=== PATIENT | female | born 1985 | race Asian ===

== ENCOUNTER 2020-05-09 17:05 | Emergency (ER) | payer OTHER ==
[~2020-05-09] VITALS: Ht 162.6 cm; Wt 62.1 kg
[2020-05-09 17:15] VITALS: Ht 162.6 cm; Wt 62.1 kg
[2020-05-09] MEDS ORDERED: ANTIBIOTIC O500 U/GM TOP (18:19)
[2020-05-09] MEDS ORDERED: IBU600 M2 PO (18:19)
[2020-05-09 19:00] VITALS: BP 138/88
== END 2020-05-09 18:40 | disposition home or self-care (01) ==
LOC: ED 17:05
DX: S00.81XA Abrasion of other part of head, initial encounter (principal); X58.XXXA Exposure to other specified factors, initial encounter; Y93.89 Activity, other specified; Y92.89 Other specified places as the place of occurrence of the external cause; Y99.8 Other external cause status
CPT/HCPCS: 90715